=== PATIENT | male | born 1975 | race Caucasian/White ===

== ENCOUNTER 2022-07-07 10:34 | Emergency (ER) | payer OTHER ==
[2022-07-07 10:51] VITALS: BP 126/92; PULSE 84; RESP 17; TEMP 98.1; BMI 25.7
[2022-07-07] MEDS ORDERED: ACETAMINOPHEN 500 MG TABLET (FP) PO ONE (14:33)
[2022-07-07 15:06] LABS: BASO % 1.2 % (0-2.0); EOS % 3.5 % (0-4.5); HEMATOCRIT 38.5 % (35.4-49); HEMOGLOBIN 12.8 GM/dL (11.7-16.9); LYMPH % 25.8 % (8-40); MCHC 33.3 g/dl (32.0-35.9); MEAN PLT VOLUME 7.6 fl (7.5-11.1); MONO % 14.6 % (3.8-10.2); NEUT % 54.9 % (42.8-82.8); PLATELET COUNT 358 10^3/uL (134-434); RBC 4.59 M/mm3 (4.00-5.60); WHITE BLOOD COUNT 5.2 K/mm3 (4.0-10.0)
[2022-07-07 15:29] LABS: ALBUMIN 3.8 g/dl (3.4-5.0)
[2022-07-07 15:30] LABS: BLOOD UREA NITROGEN 25.7 mg/dL (7-18)
[2022-07-07 15:32] LABS: PHOSPHOROUS 2.9 mg/dL (2.5-4.9)
[2022-07-07 15:34] LABS: TOT PROT 7.4 g/dl (6.4-8.2)
[2022-07-07 15:43] LABS: BILIRUBIN,TOTAL 0.6 mg/dL (0.2-1); CREATININE 2.2 mg/dL (0.55-1.3)
[2022-07-07 16:25] LABS: EPI CELLS 1 /uL (0-25.1); HYALINE CASTS 0 /uL (0-3.1); PH,URINE 5.5 (5.0-8.0); URINE APPEARANCE CLEAR; URINE BACTERIA 2 /uL (0-1359); URINE BILIRUBIN NEGATIVE (NEGATIVE); URINE COLOR YELLOW; URINE GLUCOSE (UA) NEGATIVE (NEGATIVE); URINE KETONE NEGATIVE (NEGATIVE); URINE LEUK ESTERASE NEGATIVE (NEGATIVE); URINE NITRITE NEGATIVE (NEGATIVE); URINE PROTEIN 1+ (NEGATIVE); URINE RBC 8 /uL (0-23.9); URINE UROBILINOGEN 0.2 mg/dL (0.2-1.0); URINE WBC 1 /uL (0-25.8)
== END 2022-07-07 17:08 | disposition home or self-care (01) ==
LOC: JER 10:34
DX: R51.9 Headache, unspecified (principal); M79.10 Myalgia, unspecified site
CPT/HCPCS: 0241U-QW; 36415; 71046-TC-FY; 76775-TC; 80053; 81003; 82306; 82570; 82610; 83970; 84100; 84156; 85025; 99284-25

== ENCOUNTER 2022-08-25 23:32 | Emergency (ER) | payer OTHER ==
[2022-08-25 23:36] VITALS: BP 143/99; PULSE 84; RESP 18; TEMP 97.5; BMI 25.7
[2022-08-26] MEDS ORDERED: PENICILLIN G BENZATHINE 2,400,000 UNIT/4 ML PFS IM ONE (01:31)
[2022-08-26] MEDS ORDERED: PENICILLIN G BENZATHINE 2,400,000 UNIT/4 ML PFS ONE (01:44)
[2022-08-26 01:52] LABS: EPI CELLS 1 /uL (0-25.1); HYALINE CASTS 0 /uL (0-3.1); PH,URINE 5.5 (5.0-8.0); URINE APPEARANCE CLEAR; URINE BACTERIA 1 /uL (0-1359); URINE BILIRUBIN NEGATIVE (NEGATIVE); URINE COLOR YELLOW; URINE GLUCOSE (UA) NEGATIVE (NEGATIVE); URINE KETONE NEGATIVE (NEGATIVE); URINE LEUK ESTERASE NEGATIVE (NEGATIVE); URINE NITRITE NEGATIVE (NEGATIVE); URINE PROTEIN 1+ (NEGATIVE); URINE RBC 4 /uL (0-23.9); URINE UROBILINOGEN 0.2 mg/dL (0.2-1.0); URINE WBC 3 /uL (0-25.8)
[2022-08-26 02:39] LABS: BASO % 0.9 % (0-2.0); EOS % 3.6 % (0-4.5); HEMATOCRIT 36.3 % (35.4-49); HEMOGLOBIN 11.9 GM/dL (11.7-16.9); LYMPH % 28.6 % (8-40); MCH 27.4 pg (25.7-33.7); MCHC 32.8 g/dl (32.0-35.9); MEAN CELL VOLUME 83.7 fl (80-96); MEAN PLT VOLUME 7.4 fl (7.5-11.1); NEUT % 60.9 % (42.8-82.8); PLATELET COUNT 427 10^3/uL (134-434); RBC 4.34 M/mm3 (4.00-5.60); RDW 14.3 % (11.9-15.9); WHITE BLOOD COUNT 9.1 K/mm3 (4.0-10.0)
[2022-08-26 03:12] LABS: ALBUMIN 3.7 g/dl (3.4-5.0); BLOOD UREA NITROGEN 32.9 mg/dL (7-18); CALCIUM 9.1 mg/dL (8.5-10.1)
[2022-08-26 03:15] LABS: CREATININE 1.7 mg/dL (0.55-1.3)
[2022-08-26 03:17] LABS: BILIRUBIN,TOTAL 0.5 mg/dL (0.2-1); TOT PROT 7.4 g/dl (6.4-8.2)
[2022-08-26] MEDS ORDERED: DOXYCYCLINE HYCLATE 100 MG CAPSULE PO ONE ×2 (03:40→04:12)
== END 2022-08-26 04:27 | disposition home or self-care (01) ==
LOC: JER 23:32
DX: R30.0 Dysuria (principal); N34.2 Other urethritis
CPT/HCPCS: 36415; 76870-TC; 80053; 81003; 85025; 86780; 87086; 87491; 87591; 99284-25

== ENCOUNTER 2022-12-21 11:58 | Emergency (ER) | payer OTHER ==
[2022-12-21 12:03] VITALS: BP 150/95; PULSE 77; RESP 18; TEMP 97.6; BMI 25.7
[2022-12-21 12:56] LABS: BASO % 0.6 % (0-2.0); EOS % 2.9 % (0-4.5); HEMATOCRIT 34.8 % (35.4-49); HEMOGLOBIN 11.6 GM/dL (11.7-16.9); LYMPH % 19.1 % (8-40); MCH 26.7 pg (25.7-33.7); MCHC 33.3 g/dl (32.0-35.9); MEAN PLT VOLUME 7.5 fl (7.5-11.1); MONO % 7.7 % (3.8-10.2); NEUT % 69.7 % (42.8-82.8); PLATELET COUNT 447 10^3/uL (134-434); RBC 4.36 M/mm3 (4.00-5.60); RDW 13.2 % (11.9-15.9); WHITE BLOOD COUNT 10.3 K/mm3 (4.0-10.0)
[2022-12-21 13:12] LABS: POTASSIUM 4.3 mmol/L (3.5-5.1)
[2022-12-21 13:13] LABS: CALCIUM 9.7 mg/dL (8.5-10.1)
[2022-12-21 13:15] LABS: BLOOD UREA NITROGEN 31.5 mg/dL (7-18)
[2022-12-21 13:17] LABS: CREATININE 2.2 mg/dL (0.55-1.3)
[2022-12-21] MEDS ORDERED: SODIUM CHLORIDE 0.9% 500 ML INFUS.BAG IV ONE (13:18)
== END 2022-12-21 14:41 | disposition home or self-care (01) ==
LOC: JER 11:58 → JERFT 11:58
DX: R22.0 Localized swelling, mass and lump, head (principal); K08.89 Other specified disorders of teeth and supporting structures
CPT/HCPCS: 36415; 76536-TC; 80048; 85025; 99285-25

== ENCOUNTER 2023-03-11 20:07 | Emergency (ER) | payer OTHER ==
[2023-03-11 20:18] VITALS: BP 108/81; TEMP 98; BMI 25.7
[2023-03-11] MEDS ORDERED: SODIUM CHLORIDE 0.9% 500 ML INFUS.BAG IV ONE (21:11)
[2023-03-11 21:14] LABS: BASO % 0.7 % (0-2.0); HEMATOCRIT 37.9 % (35.4-49); HEMOGLOBIN 12.8 GM/dL (11.7-16.9); LYMPH % 30.3 % (8-40); MCHC 33.6 g/dl (32.0-35.9); MEAN CELL VOLUME 80.2 fl (80-96); MEAN PLT VOLUME 7.3 fl (7.5-11.1); MONO % 10.9 % (3.8-10.2); NEUT % 55.1 % (42.8-82.8); PLATELET COUNT 319 10^3/uL (134-434); RBC 4.73 M/mm3 (4.00-5.60); RDW 14.6 % (11.9-15.9); WHITE BLOOD COUNT 6.3 K/mm3 (4.0-10.0)
[2023-03-11 21:20] LABS: INR 1.08 (0.83-1.09); PROTHROMBIN TIME (PATIENT) 12.5 SEC (9.7-13.0)
[2023-03-11 21:23] LABS: ACTIVATED PTT 29.1 SECONDS (25.2-36.5)
[2023-03-11] MEDS ORDERED: KETOROLAC TROMETHAMINE 15 MG/ML VIAL IVPUSH ONE (21:24)
[2023-03-11 21:29] LABS: ALBUMIN 3.6 g/dl (3.4-5.0); CALCIUM 9.4 mg/dL (8.5-10.1)
[2023-03-11 21:30] LABS: BLOOD UREA NITROGEN 38.4 mg/dL (7-18); MAGNESIUM 1.7 mg/dL (1.8-2.4)
[2023-03-11] MEDS ORDERED: MAGNESIUM SULF 50% (8.12 MEQ/2 ML-1 GM VIAL) IVPB ONE (21:32)
[2023-03-11 21:33] LABS: CREATININE 2.2 mg/dL (0.55-1.3)
[2023-03-11 21:34] LABS: BILIRUBIN,TOTAL 0.8 mg/dL (0.2-1); TOT PROT 7.5 g/dl (6.4-8.2)
[2023-03-11] MEDS ORDERED: KETOROLAC TROMETHAMINE 15 MG/ML VIAL ONE (21:52)
[2023-03-11] MEDS ORDERED: MAGNESIUM 1GM/D5W - 1 GM/100 ML IVPB IVPB ONE (21:53)
[2023-03-11 22:26] VITALS: PULSE 71; RESP 20
== END 2023-03-11 22:35 | disposition home or self-care (01) ==
LOC: JER 20:07
PROC: 3E0333Z Introduction of Anti-inflammatory into Peripheral Vein, Percutaneous Approach (ICD-10-PCS; principal; 2023-03-11)
PROC: 3E033GC Introduction of Other Therapeutic Substance into Peripheral Vein, Percutaneous Approach (ICD-10-PCS; 2023-03-11)
DX: R07.89 Other chest pain (principal); R06.02 Shortness of breath; R11.2 Nausea with vomiting, unspecified; U07.1 COVID-19; R09.81 Nasal congestion
CPT/HCPCS: 0241U-QW; 36415; 71045-TC-FY; 80053; 83735; 84484; 85025; 85610; 85730; 93005; 93010; 99291

== ENCOUNTER 2023-06-27 16:48 | Inpatient (IN) | payer OTHER ==
[2023-06-27] MEDS ORDERED: FAMOTIDINE 20 MG/50 ML IVPB 20 MG/50 ML MG IVPB ONE ×2 (18:13→18:31)
[2023-06-27] MEDS ORDERED: LACTATED RINGERS SOLUTION 1000 ML INFUS.BAG IV ONE (18:13)
[2023-06-27] MEDS ORDERED: ONDANSETRON 4 MG/2 ML VIAL IVPUSH ONE (18:13)
[2023-06-27] MEDS ORDERED: ONDANSETRON 4 MG/2 ML VIAL ONE (18:31)
[2023-06-27 18:39] LABS: BASO % 0.4 % (0-2.0); EOS % 0.2 % (0-4.5); HEMATOCRIT 38.8 % (35.4-49); HEMOGLOBIN 12.7 GM/dL (11.7-16.9); LYMPH % 8.2 % (8-40); MCH 26.5 pg (25.7-33.7); MCHC 32.8 g/dl (32.0-35.9); MEAN CELL VOLUME 80.6 fl (80-96); MEAN PLT VOLUME 7.1 fl (7.5-11.1); MONO % 5.4 % (3.8-10.2); NEUT % 85.8 % (42.8-82.8); PLATELET COUNT 369 10^3/uL (134-434); RBC 4.82 M/mm3 (4.00-5.60); RDW 14.1 % (11.9-15.9); WHITE BLOOD COUNT 14.1 K/mm3 (4.0-10.0)
[2023-06-27 18:59] LABS: POTASSIUM 3.9 mmol/L (3.5-5.1)
[2023-06-27 19:01] LABS: CALCIUM 8.8 mg/dL (8.5-10.1)
[2023-06-27 19:02] LABS: ALBUMIN 3.4 g/dl (3.4-5.0); BLOOD UREA NITROGEN 27.9 mg/dL (7-18); MAGNESIUM 2.1 mg/dL (1.8-2.4)
[2023-06-27 19:06] LABS: BILIRUBIN,TOTAL 1.8 mg/dL (0.2-1); TOT PROT 7.2 g/dl (6.4-8.2)
[2023-06-27] MEDS ORDERED: LACTATED RINGERS SOLUTION 1,000 ML/1,000 ML INFUS.BAG IV STA (21:48)
[2023-06-27] MEDS ORDERED: morphine CARPU-JECT 4 MG/1 ML DISP.SYRIN IVPUSH ONE (21:48)
[2023-06-27] MEDS ORDERED: LACTATED RINGERS SOLUTION 1,000 ML/1,000 ML INFUS.BAG IV SCH (22:00)
[2023-06-27] MEDS ORDERED: morphine SULFATE 4 MG/ML VIAL ONE (22:36)
[2023-06-27] MEDS ORDERED: ACETAMINOPHEN 1000 MG/100 ML BAG IVPB PRN (23:03)
[2023-06-27] MEDS ORDERED: oxyCODONE HCL 5 MG TABLET PO PRN (23:04)
[2023-06-27] MEDS ORDERED: morphine SULFATE 4 MG/ML VIAL IVPUSH PRN (23:07)
[2023-06-28] MEDS ORDERED: LACTATED RINGERS SOLUTION 1,000 ML/1,000 ML INFUS.BAG IV SCH (00:41)
[2023-06-28] MEDS: LACTATED RINGERS SOLUTION 1,000 ML/1,000 ML INFUS.BAG IV SCH ×3 (00:49→15:10)
[2023-06-28 02:20] VITALS: BMI 26.8
[2023-06-28] MEDS: HEPARIN NA (PORCINE) 5,000 UNITS/ML 1ML VIAL SQ SCH ×3 (06:13→22:00)
[2023-06-28 08:33] LABS: HEMATOCRIT 33.7 % (35.4-49); HEMOGLOBIN 10.9 GM/dL (11.7-16.9); MCH 26.6 pg (25.7-33.7); MCHC 32.4 g/dl (32.0-35.9); MEAN CELL VOLUME 82.1 fl (80-96); MEAN PLT VOLUME 7.6 fl (7.5-11.1); PLATELET COUNT 313 10^3/uL (134-434); RDW 13.8 % (11.9-15.9); WHITE BLOOD COUNT 12.4 K/mm3 (4.0-10.0)
[2023-06-28 08:45] LABS: POTASSIUM 3.9 mmol/L (3.5-5.1)
[2023-06-28 08:46] LABS: CALCIUM 8.1 mg/dL (8.5-10.1)
[2023-06-28 08:47] LABS: ALBUMIN 2.8 g/dl (3.4-5.0)
[2023-06-28 08:50] LABS: BLOOD UREA NITROGEN 25.7 mg/dL (7-18); CREATININE 1.7 mg/dL (0.55-1.3)
[2023-06-28 08:53] LABS: BILIRUBIN,DIRECT 0.5 mg/dL (0.0-0.2)
[2023-06-28 08:55] LABS: BILIRUBIN,TOTAL 1.8 mg/dL (0.2-1)
[2023-06-28] MEDS ORDERED: TAMSULOSIN HCL 0.4 MG CAP PO SCH (10:00)
[2023-06-28] MEDS ORDERED: PATIENT'S OWN MEDICATION (NON-FORMULARY) (Valsartan/Hydrochlorothiazide [Valsartan-Hctz 16 PO SCH (10:00)
[2023-06-28] MEDS: ROSUVASTATIN CA 20 MG TABLET PO SCH (11:16)
[2023-06-28] MEDS: POLYETHYLENE GLYCOL (HEALTHYLAX) 3350 17 GM PACKET PO SCH (11:16)
[2023-06-28] MEDS: HYDROCHLOROTHIAZIDE 12.5 MG CAPSULE (FP) PO SCH (11:16)
[2023-06-28] MEDS: VALSARTAN 160 MG TABLET PO SCH (11:16)
[2023-06-28] MEDS: amLODIPine BESYLATE 5 MG TABLET (FP) PO SCH (11:16)
[2023-06-28 20:45] LABS: METHADONE, UR NEGATIVE (NEGATIVE)
[2023-06-28 20:46] LABS: COCAINE, UR NEGATIVE (NEGATIVE); OPIATES, URI POSITIVE (NEGATIVE); PHENCYCLIDINE,URINE NEGATIVE (NEGATIVE); URINE AMPHETAMINES NEGATIVE (NEGATIVE); URINE BARBITURATES NEGATIVE (NEGATIVE); URINE BENZODIAZEPINES NEGATIVE (NEGATIVE)
[2023-06-28] MEDS: TAMSULOSIN HCL 0.4 MG CAP PO SCH (21:59)
[2023-06-29] MEDS ORDERED: PANTOPRAZOLE 40 MG TABLET PO SCH (10:00)
[2023-06-29] MEDS: MAG HYDROX/AL HYDROX/SIMETH 30 ML UNIT-DOSE CUP PO SCH ×3 (13:17→23:49)
[2023-06-29] MEDS: HYDROCHLOROTHIAZIDE 12.5 MG CAPSULE (FP) PO SCH (13:17)
[2023-06-29] MEDS: amLODIPine BESYLATE 5 MG TABLET (FP) PO SCH (13:17)
[2023-06-29] MEDS: ROSUVASTATIN CA 20 MG TABLET PO SCH (13:17)
[2023-06-29] MEDS: VALSARTAN 160 MG TABLET PO SCH (13:17)
[2023-06-29] MEDS: POLYETHYLENE GLYCOL (HEALTHYLAX) 3350 17 GM PACKET PO SCH (13:17)
[2023-06-29] MEDS: HEPARIN NA (PORCINE) 5,000 UNITS/ML 1ML VIAL SQ SCH ×3 (17:38→21:17)
[2023-06-29] MEDS: PANTOPRAZOLE 40 MG TABLET PO SCH (21:17)
[2023-06-29] MEDS: TAMSULOSIN HCL 0.4 MG CAP PO SCH (21:17)
[2023-06-30] MEDS: LACTATED RINGERS SOLUTION 1,000 ML/1,000 ML INFUS.BAG IV SCH ×2 (04:36→10:01)
[2023-06-30] MEDS: HEPARIN NA (PORCINE) 5,000 UNITS/ML 1ML VIAL SQ SCH (05:32)
[2023-06-30] MEDS: MAG HYDROX/AL HYDROX/SIMETH 30 ML UNIT-DOSE CUP PO SCH (05:32)
[2023-06-30 06:40] VITALS: BP 116/62; PULSE 71; RESP 18; TEMP 98.4
[2023-06-30 09:42] LABS: BASO % 0.4 % (0-2.0); EOS % 4.1 % (0-4.5); HEMATOCRIT 33.3 % (35.4-49); HEMOGLOBIN 11.6 GM/dL (11.7-16.9); LYMPH % 19.7 % (8-40); MCH 27.8 pg (25.7-33.7); MCHC 34.7 g/dl (32.0-35.9); MEAN PLT VOLUME 7.7 fl (7.5-11.1); MONO % 7.6 % (3.8-10.2); NEUT % 68.2 % (42.8-82.8); PLATELET COUNT 352 10^3/uL (134-434); RBC 4.17 M/mm3 (4.00-5.60); RDW 13.6 % (11.9-15.9); WHITE BLOOD COUNT 7.8 K/mm3 (4.0-10.0)
[2023-06-30] MEDS: amLODIPine BESYLATE 5 MG TABLET (FP) PO SCH (10:01)
[2023-06-30] MEDS: POLYETHYLENE GLYCOL (HEALTHYLAX) 3350 17 GM PACKET PO SCH (10:01)
[2023-06-30] MEDS: HYDROCHLOROTHIAZIDE 12.5 MG CAPSULE (FP) PO SCH (10:01)
[2023-06-30] MEDS: PANTOPRAZOLE 40 MG TABLET PO SCH (10:01)
[2023-06-30] MEDS: VALSARTAN 160 MG TABLET PO SCH (10:01)
[2023-06-30] MEDS: ROSUVASTATIN CA 20 MG TABLET PO SCH (10:01)
[2023-06-30 10:11] LABS: POTASSIUM 3.7 mmol/L (3.5-5.1)
[2023-06-30 11:12] LABS: ALBUMIN 2.8 g/dl (3.4-5.0)
[2023-06-30 11:13] LABS: BLOOD UREA NITROGEN 21.6 mg/dL (7-18)
[2023-06-30 11:15] LABS: CREATININE 1.8 mg/dL (0.55-1.3)
[2023-06-30 11:17] LABS: BILIRUBIN,TOTAL 0.9 mg/dL (0.2-1); TOT PROT 6.3 g/dl (6.4-8.2)
== END 2023-06-30 11:52 | disposition home or self-care (01) | DRG 282 ==
LOC: JER 16:48 → JERBED 21:05 → J7W 06-28 01:35
PROVIDERS: ADMIT Internal Medicine; ATTEND Internal Medicine
PROC: 0DB68ZX Excision of Stomach, Via Natural or Artificial Opening Endoscopic, Diagnostic (ICD-10-PCS; 2023-06-29)
PROC: 0DB58ZX Excision of Esophagus, Via Natural or Artificial Opening Endoscopic, Diagnostic (ICD-10-PCS; 2023-06-29)
PROC: 0DB98ZX Excision of Duodenum, Via Natural or Artificial Opening Endoscopic, Diagnostic (ICD-10-PCS; principal; 2023-06-29 09:30)
DX: K85.90 Acute pancreatitis without necrosis or infection, unspecified (principal); N40.0 Benign prostatic hyperplasia without lower urinary tract symptoms; K21.00 Gastro-esophageal reflux disease with esophagitis, without bleeding; K29.70 Gastritis, unspecified, without bleeding; I13.0 Hypertensive heart and chronic kidney disease with heart failure and stage 1 through stage 4 chronic kidney disease, or unspecified chronic kidney disease; I50.32 Chronic diastolic (congestive) heart failure; N18.2 Chronic kidney disease, stage 2 (mild)
CPT/HCPCS: 0241U-QW; 36415; 74177-TC; 74181-TC; 74220-TC-FY; 74240-TC-FY; 80048; 80053; 80061; 80076; 80307; 82787; 83690; 83735; 85025; 85027; 86140; 88305-TC; 99285-25; J1644; Q9967

== ENCOUNTER 2023-10-20 16:07 | Emergency (ER) | payer OTHER ==
[2023-10-20 16:16] VITALS: BP 147/90; PULSE 100; RESP 18; TEMP 98.1; BMI 25.7
[2023-10-20] MEDS ORDERED: ACETAMINOPHEN 500 MG TABLET (FP) ONE (17:32)
[2023-10-20] MEDS: ACETAMINOPHEN 500 MG TABLET (FP) PO ONE (17:35)
== END 2023-10-20 18:54 | disposition home or self-care (01) ==
LOC: JERFT 16:07
DX: R05.9 Cough, unspecified (principal); R09.81 Nasal congestion; R51.9 Headache, unspecified; M79.10 Myalgia, unspecified site; R63.0 Anorexia; J02.9 Acute pharyngitis, unspecified; R19.7 Diarrhea, unspecified; B97.4 Respiratory syncytial virus as the cause of diseases classified elsewhere; Z20.822 Contact with and (suspected) exposure to COVID-19
CPT/HCPCS: 0241U-QW; 71046-TC-FY; 87651; 99284-25

== ENCOUNTER 2024-02-10 23:57 | Emergency (ER) | payer OTHER ==
[2024-02-11 00:19] VITALS: BP 145/99; PULSE 69; RESP 20; TEMP 98.1; BMI 25.7
[2024-02-11] MEDS: SODIUM CHLORIDE 1,000 ML IV STA (02:03)
[2024-02-11] MEDS ORDERED: MAG HYDROX/AL HYDROX/SIMETH 30 ML UNIT-DOSE CUP ONE (02:04)
[2024-02-11] MEDS ORDERED: ACETAMINOPHEN INJECTION 100 ML IVPB ONE (02:04)
[2024-02-11] MEDS: ACETAMINOPHEN 1000 MG/100 ML BAG IVPB ONE (02:09)
[2024-02-11] MEDS: MAG HYDROX/AL HYDROX/SIMETH 30 ML UNIT-DOSE CUP PO ONE (02:10)
[2024-02-11 02:21] LABS: BASO % 0.9 % (0-2.0); EOS % 4.2 % (0-4.5); HEMATOCRIT 35.5 % (35.4-49); LYMPH % 36.8 % (8-40); MCH 27.7 pg (25.7-33.7); MCHC 33.9 g/dl (32.0-35.9); MEAN CELL VOLUME 81.8 fl (80-96); MEAN PLT VOLUME 7.3 fl (7.5-11.1); MONO % 8.1 % (3.8-10.2); PLATELET COUNT 338 10^3/uL (134-434); RBC 4.34 M/mm3 (4.00-5.60); RDW 13.9 % (11.9-15.9); WHITE BLOOD COUNT 7.5 K/mm3 (4.0-10.0)
[2024-02-11 02:45] LABS: POTASSIUM 4.5 mmol/L (3.5-5.1)
[2024-02-11 02:48] LABS: ALBUMIN 3.7 g/dl (3.4-5.0); BLOOD UREA NITROGEN 43.1 mg/dL (7-18)
[2024-02-11 02:51] LABS: BILIRUBIN,TOTAL 0.5 mg/dL (0.2-1); CREATININE 2.8 mg/dL (0.55-1.3); TOT PROT 7.2 g/dl (6.4-8.2)
[2024-02-11] MEDS ORDERED: FAMOTIDINE 20 MG/50 ML IVPB 20 MG/50 ML MG IVPB ONE (03:00)
[2024-02-11] MEDS: FAMOTIDINE 20 MG/50 ML IVPB 20 MG/50 ML MG IVPB ONE (03:04)
== END 2024-02-11 03:54 | disposition home or self-care (01) ==
LOC: JER 23:57
PROC: 3E033GC Introduction of Other Therapeutic Substance into Peripheral Vein, Percutaneous Approach (ICD-10-PCS; principal; 2024-02-11)
PROC: 3E033NZ Introduction of Analgesics, Hypnotics, Sedatives into Peripheral Vein, Percutaneous Approach (ICD-10-PCS; 2024-02-11)
DX: R10.84 Generalized abdominal pain (principal)
CPT/HCPCS: 36415; 80053; 83605; 83690; 85025; 99284-25; J0131

== ENCOUNTER 2024-05-31 23:56 | Emergency (ER) | payer OTHER ==
[2024-06-01 00:04] VITALS: BP 160/111; PULSE 72; RESP 20; TEMP 98.4; BMI 25.7
[2024-06-01] MEDS ORDERED: FAMOTIDINE 20 MG/50 ML IVPB 20 MG/50 ML MG IVPB ONE ×2 (01:02→01:12)
[2024-06-01] MEDS ORDERED: ACETAMINOPHEN INJECTION 100 ML ONE (01:05)
[2024-06-01 01:11] LABS: BASO % 0.7 % (0-2.0); EOS % 3.1 % (0-4.5); HEMATOCRIT 37.2 % (35.4-49); HEMOGLOBIN 12.3 GM/dL (11.7-16.9); LYMPH % 37.6 % (8-40); MCHC 32.9 g/dl (32.0-35.9); MEAN CELL VOLUME 82.1 fl (80-96); MEAN PLT VOLUME 7.8 fl (7.5-11.1); MONO % 6.9 % (3.8-10.2); NEUT % 51.7 % (42.8-82.8); PLATELET COUNT 324 10^3/uL (134-434); RBC 4.53 M/mm3 (4.00-5.60); RDW 14.2 % (11.9-15.9); WHITE BLOOD COUNT 7.8 K/mm3 (4.0-10.0)
[2024-06-01] MEDS: ACETAMINOPHEN 1000 MG/100 ML BAG IVPB ONE (01:11)
[2024-06-01] MEDS: PANTOPRAZOLE SODIUM 40 MG VIAL IVPUSH ONE (01:11)
[2024-06-01] MEDS: FAMOTIDINE 20 MG/50 ML IVPB 20 MG/50 ML MG IVPB ONE (01:16)
[2024-06-01 01:17] LABS: INR 1.03 (0.83-1.09); PROTHROMBIN TIME (PATIENT) 11.6 SEC (9.7-13.0)
[2024-06-01 01:19] LABS: ACTIVATED PTT 30.6 SECONDS (25.2-36.5)
[2024-06-01 01:45] LABS: POTASSIUM 4.1 mmol/L (3.5-5.1)
[2024-06-01 01:47] LABS: CALCIUM 8.9 mg/dL (8.5-10.1)
[2024-06-01 01:48] LABS: ALBUMIN 3.8 g/dl (3.4-5.0)
[2024-06-01 01:49] LABS: BLOOD UREA NITROGEN 28.6 mg/dL (7-18)
[2024-06-01 01:51] LABS: CREATININE 1.9 mg/dL (0.55-1.3)
[2024-06-01 01:52] LABS: BILIRUBIN,TOTAL 1.1 mg/dL (0.2-1)
[2024-06-01 01:53] LABS: TOT PROT 7.2 g/dl (6.4-8.2)
[2024-06-01 02:26] LABS: HIV INTERPRETATION NEGATIVE (NEGATIVE)
[2024-06-01] MEDS ORDERED: MECLIZINE HCL 25 MG TABLET (FP) ONE (03:32)
[2024-06-01] MEDS: MECLIZINE HCL 25 MG TABLET (FP) PO ONE (03:33)
== END 2024-06-01 05:54 | disposition home or self-care (01) ==
LOC: JER 23:56
PROC: 3E033GC Introduction of Other Therapeutic Substance into Peripheral Vein, Percutaneous Approach (ICD-10-PCS; principal; 2024-06-01)
PROC: 3E033NZ Introduction of Analgesics, Hypnotics, Sedatives into Peripheral Vein, Percutaneous Approach (ICD-10-PCS; 2024-06-01)
DX: R10.12 Left upper quadrant pain (principal); R10.13 Epigastric pain; R11.0 Nausea
CPT/HCPCS: 36415; 74176-TC; 80053; 83605; 83690; 85025; 85610; 85730; 86803; 86850; 86900; 86901; 87389; 93005; 93010; 99285-25; J0131